=== PATIENT | female | born 1960 | race Caucasian/White ===

== ENCOUNTER 2016-08-17 11:00 | Inpatient (IN) | payer OTHER ==
[~2016-08-17] VITALS: Ht 177.8 cm; Wt 78.4 kg
--- NOTE | ~2016-08-17 | OR ---
PATIENT'S NAME: [facility] AGE: 56 Y [address] ROOM: [place] [address] LOCATION: [facility] – [place] ADMIT DATE: 08/21/2016 OR/Procedure Report DISCHARGE DATE: FAMILY PHYSICIAN: Bijan Apodaca MD ATTENDING PHYSICIAN: Zenaida Resendiz SURGEON: Zenaida Resendiz MD CASH APPLICATION CLERK: Kalie Herrera. DATE OF PROCEDURE: 08/21/2016 PREOPERATIVE DIAGNOSIS: Lumbar spinal stenosis. POSTOPERATIVE DIAGNOSIS: Lumbar spinal stenosis. PROCEDURES PERFORMED: 1. Bilateral hemilaminotomy with decompression of neural elements and foraminotomy without diskectomy at L5-S1. 2. Bilateral foraminotomy and hemilaminotomy with decompression of neural elements with diskectomy at L4-5. ANESTHESIA: General. ANESTHESIA PROVIDER: Pee De Jesus MD. HISTORY: This patient is a 56-year-old female who presented with back and bilateral leg pain. The patient says she had pain going down both legs and the right side was worse. She had numbness and tingling in her extremities. MRI showed moderate to severe central and foraminal stenosis bilaterally at L4- L5 and L5-S1 levels. Surgery was recommended. The above procedure with benefits, risks, and alternatives were discussed with the patient and with her consent, she was brought to the operating room for surgery. PROCEDURE IN DETAIL: In the operating room, the patient was placed in a supine position. Anesthesia was induced. She was intubated and preoperative antibiotics were administered. The patient was then turned to a prone position on a Mario table taking care to protect all pressure points. The incision line was marked out in the midline of her lower back and the whole area was prepped and draped in a sterile fashion. Local anesthesia was infiltrated. The #10 blade was used to open the incision and to deepen it to the fascial layer. The Bovie was then used to open the fascia and identify the tips of the spinous processes. The paraspinous muscles were dissected off the spinous processes and laminae of L4, L5, and S1. The self-retaining retractors were readjusted. Intraoperative x-ray was obtained to verify that we were at the desired levels. PATIENT'S NAME: [facility] AGE: 56 Y [address] ROOM: [address] [address] LOCATION: [facility] [place] ADMIT DATE: 08/21/2016 OR/Procedure Report DISCHARGE DATE: FAMILY PHYSICIAN: Bijan Apodaca MD ATTENDING PHYSICIAN: Zenaida Resendiz Foraminotomy was then carried out bilaterally at L4-5 and L5-S1. At each level, the interlaminar space was exposed. The adjacent edges of the lamina were then drilled down along with the medial facets. The ligamentum flavum was removed to expose the dura. Further removal of the ligamentum flavum as well as the facet and lamina revealed the nerve roots. Decompression was carried out around the nerve roots until it could be seen freely going out into its own foramen. This was done bilaterally at L4-5 and L5-S1 levels. At the L4-5 level, the disk was bulging appreciably and contributing to the stenosis. A diskectomy was therefore necessary. The microscope was brought in at this point, and under microscopic vision, the nerve root retractor was used to hold back the nerve root towards the midline. Diskectomy was then performed by using the 15 blade to cut into the disk material and using pituitary rongeur to pull out disk material. This continued until the nerve roots were satisfactorily decompressed. The ligamentum flavum was also removed in the midline to remove any central stenosis that was developing. At the end of the procedure, the nerve roots could be seen at L4-5 and L5-S1 going out into their respective foramen without any impediment. Irrigation was used to wash all the debris and hemostasis was achieved. Final check was conducted to ensure that both the central canal and nerve roots were thoroughly decompressed. The incision was then closed in layers using appropriate suture materials. Sterile dressing was applied. The patient's anesthesia was reversed. She was extubated and taken to the recovery room to complete her recovery. I was at and performed every aspect of this procedure, assisted at some stages by the operating room nurses. There were no apparent intraoperative complications. Swabs, needles, and instruments were all accounted for at the end of the case. I expect the patient to benefit from this procedure. ZENAIDA RESENDIZ MD CNO/modl /[id number] CC: Bijan Apodaca MD d: 08/22/16 0108 t: 08/24/16 0834, OPERATIVE SUMMARY
[~2016-08-17 11:00] MED LIST: ADVIL200 MG PO; ASCORBIC ACID500 MG PO; ASPIRIN LO-DOSE81 MG PO; CALCIUM 600 +1 EAC6 PO; ECHINACEA HERB380 MG PO; EFFEXOR XR150 MG PO; FISH OIL 1,0001 EACH PO; GINKGO BILOBA120 MG PO; JUICE PLUS PO; PENICILLIN V P500 MG PO; PROVENTIL OR V6.7 GM INH; SYMBICORT 16010.2 GM INH; TAMOXIFEN CITRA20 MG PO; TYLENOL WITH C1 EACH PO; ULTRAM50 MG PO
== END 2016-08-22 12:30 | disposition disaster alternative care site (69) | DRG 520 ==
LOC: G3N 08-21 08:39 → GMSU 08-21 17:09
PROVIDERS: ADMIT Neurological Surgery
DX: M48.06 Spinal stenosis, lumbar region (principal); M47.26 Other spondylosis with radiculopathy, lumbar region; Z79.82 Long term (current) use of aspirin; Z85.3 Personal history of malignant neoplasm of breast
CPT/HCPCS: J0690; J1040; J1100; J2001; J2250; J2405; J2795; J7030